=== PATIENT | female | born 1965 | race Caucasian/White ===

== ENCOUNTER → 2023-05-20 07:43 | Outpatient (REF) | payer OTHER, SELFPAY | LOC: HWWDC 07:43 | PROVIDERS: ATTENDING PHYSICIAN Obstetrics & Gynecology; FAMILY PHYSICIAN Internal Medicine | DX: Z12.31 Encounter for screening mammogram for malignant neoplasm of breast (principal) | CPT/HCPCS: 77063; 77067 ==

== ENCOUNTER 2023-07-14 07:52 | Emergency (ER) | payer OTHER, SELFPAY ==
[2023-07-14 07:53] VITALS: BP 108/63
[2023-07-14 08:20] LABS: Urine Albumin Negative (Neg - Trace); Urine Bilirubin Negative (Negative); Urine Character Clear (Clear); Urine Color Yellow; Urine Glucose Negative (Negative); Urine Ketone Trace (Negative); Urine Leukocyte Trace (Negative); Urine Nitrite Negative (Negative); Urine Occult Blood Trace (Negative); Urine Specific Gravity 1.005 (<1.030); Urine Urobilinogen Negative (Neg - 1+)
[2023-07-14 08:22] LABS: % Basophils 0.3 % (0-2); % Eosinophils 2.1 % (0-6); % Immature Granulocytes 0.3 % (0-0.5); % Lymphocytes 31.8 % (20.5-51.1); % Monocytes 8.8 % (1.7-9.3); % Neutrophils 56.7 % (42.2-75.2); Absolute Eosinophils 0.1 10^3/uL (0-0.7); Absolute Lymphocytes 1.2 10^3/uL (1.2-3.4); Absolute Monocytes 0.3 10^3/uL (0.1-0.6); Absolute Neutrophils 2.2 10^3/uL (1.4-6.5); Hematocrit 41.5 % (37.0-47.0); Hemoglobin 14.9 g/dL (12.0-16.0); Mean Corp Hgb Conc. 35.9 g/dL (33.0-37.0); Mean Corpuscular Hgb 33.3 pg (27.0-31.0); Mean Corpuscular Volume 92.6 fL (81.0-99.0); Mean Platelet Volume 9.4 fL (7.4-10.4); Nucleated Red Blood Cells % 0 %; Platelet Count 200 10^3/uL (130-400); Red Blood Cell Count 4.48 10^6/uL (4.20-5.40); Red Cell Dist. Width 11.9 % (11.5-14.5); White Blood Cell Count 3.9 10^3/uL (4.8-10.8)
[2023-07-14 08:32] LABS: Urine Bacteria Few (Negative); Urine Red Blood Cell 0-2 /HPF (0-2)
[2023-07-14 08:37] LABS: ALT (SGPT) 36 U/L (0-35); AST (SGOT) 45 U/L (14-36); Albumin 4.7 g/dl (3.5-5.0); Alkaline Phosphatase 85 U/L (38-126); Blood Urea Nitrogen 16 mg/dl (7-17); Calcium 10.3 mg/dl (8.4-10.2); Carbon Dioxide 30 mmol/L (22-30); Chloride 104 mmol/L (98-107); Glucose 89 mg/dl (70-99); Lipase 113 U/L (23-300); Sodium 137 mmol/L (135-145); Total Bilirubin 1.2 mg/dl (0.2-1.3); Total Protein 7.3 g/dl (6.3-8.2); eGFR > 60.00
--- NOTE | 2023-07-14 09:13 | ED.GENMED ---
History of Present Illness
General
Chief Complaint: Abdominal Pain
Source: patient
Exam Limitations: none
Time Seen by Provider: 07/14/23 08:48
Nursing documentation reviewed up to this point in time: agreed with
Travel History
Have you had any contact with someone who has COVID-19?: No
Do you have any symptoms of coronavirus? Fever > 100 degrees, chills, cough, shortness of breath, sore throat, loss of taste or smell, muscle aches, or headache?: No
History of Present Illness
History of Present Illness:
The patient is a 58-year-old female who reports that since this past Tuesday, which was 2 days ago, she has had diffuse abdominal pain, bloating, decreased appetite and nausea. Patient also reports that her bowel movements are much less frequent
than usual. She denies vomiting and fever. She reports the pain seems worse in her epigastric area and her right abdomen. Patient has a history of pelvic surgery in the past. Patient reports she still has her gallbladder and appendix. Patient
reports that she has a history of a low white blood cell count and elevated LFTs.
Past History
Past History
ED Past Medical History: Psychiatric (History of anxiety)
ED Past Surgical History: Gynecological (Tubal ligation, KWAME/BSO July 2016) and Other (Exploratory laparotomy, cystocele and rectocele surgery, bladder sling w/ mesh)
Social History
Tobacco: Non-smoker
Alcohol: Occasional
Drug: None
Personal:
Living: with family
Employment: Employed
Family History
Family History: Other (Noncontributory)
Review of Systems
Review of Systems
Allergies reviewed?: Yes
All Other Systems: ROS reviewed and negative except as documented in HPI and ROS
Constitutional: Reports no symptoms
EENT: Reports no symptoms
Respiratory: Reports no symptoms
Cardiac: Reports no symptoms
ABD/GI: Reports abdominal pain, nausea and anorexia
: Reports no symptoms
Musculoskeletal: Reports no symptoms
Skin: Reports no symptoms
Neurological: Reports no symptoms
Endocrine: Reports no symptoms
Hematologic/Lymphatic: Reports no symptoms
Psychiatric: Reports no symptoms
Phy Exam
Physical Exam
Physical Exam:
Physical Exam
General: no apparent distress, not acutely ill
Neck: supple.
Heart: s1/s2 regular rate and rhythm, no murmur. equal radial pulses.
Lungs: no acute respiratory distress. clear bilaterally
Abdomen: soft, distended, normal BM, diffuse ab pain. No pulsatile mass
Neuro: alert and oriented. no focal neurological deficits
Skin: no rash
Psychiatric: well kept. interactive and cooperative
Extremities: no edema.
Course
Orders/Labs/Results
Orders:
Orders
07/14/23 08:03
Complete Blood Count/With Diff Urgent
Comprehensive Metabolic Panel Urgent
Lipase Urgent
07/14/23 08:05
Urinalysis Reflex To Culture Urgent
Date Specimen was Collected: 07/14/23
Time Specimen was Collected: 07:58
Urine Microscopic Reflex Cult Urgent
07/14/23 09:11
Ondansetron Injectable [Zofran] 4 mg IV NOW STA
07/14/23 09:12
CT Abd/pel W Iv And Oral Contr Urgent
Comment:
Reason For Exam: abdominal bloating, nausea
Iohexol [Omnipaque] See Protocol PO NOW STA
Abnormal Lab Results
07/14/23 07/14/23
08:03 08:05
WBC 3.9 L 10^3/uL
(4.8-10.8)
MCH 33.3 H pg
(27.0-31.0)
Calcium 10.3 H mg/dl
(8.4-10.2)
AST 45 H U/L
(14-36)
ALT 36 H U/L
(0-35)
Urine Ketones Trace A
(Negative)
Ur Occult Blood Reflex Trace A
(Negative)
Leukocyte Esterase Rfl Trace A
(Negative)
Urine Bacteria (Reflex) Few A
(Negative)
07/14/23 08:03
07/14/23 08:03
Vital Signs
Initial and Last Documented VS:
Initial Vital Signs
Temp Pulse Resp BP Pulse Ox
98.7 F 72 18 108/63 99
07/14/23 07:53 07/14/23 07:53 07/14/23 07:53 07/14/23 07:53 07/14/23 07:53
Last Documented Vital Signs
Temp Pulse Resp BP Pulse Ox
98.7 F 91 20 118/71 99
07/14/23 07:53 07/14/23 14:25 07/14/23 14:25 07/14/23 14:25 07/14/23 14:25
MDM/Problems Addressed
Differential Diagnosis Includes:
Small bowel obstruction, acute cholecystitis, acute appendicitis
MDM/Problems Addressed:
Patient presents with acute abdominal pain and bloating for 2 days
Chronic conditions affecting care: Previous abdomnial surgery
*Radiology
Radiology exam reviewed: radiology read reviewed
*Pulse Oximetry
Patient hypoxic: no
*EKG
Interpreted by ED Provider?: NA
*Critical Care Note
Total Time (30-74mins, 75-104mins- exclusive of procedures): Not Applicable
Data Reviewed
Review of Other/Old Records Reveals: Labs (Previous blood work reviewed by me. Patient has a chronically low white blood cell count)
Source: patient and family (Daughter, who is at the bedside)
Patient Management
Discussion with other providers: Other (Discussed patient with Sloan Alamo from gastroenterology who recommended [id number] IBGard)
ED Attending Note
-
Portions of this chart may have been created with voice recognition software.� Occasional wrong word or��sound alike� substitutions may have occurred due to the inherent limitations of voice recognition software.
Discharge Plan
Departure
Patient Disposition: Home (Routine Discharge)
Date of Disposition: 07/14/23
Time of Disposition: 13:51
Patient with high blood pressure during this ER visit?: No
Condition: Good
Covid-19: Not Applicable
Discharge Problem:
Enteritis
Instructions: [place] Diet, Abdominal Pain, Adult ED
Prescriptions:
New
ondansetron 4 mg tablet,disintegrating
4 mg PO TID PRN (Reason: nausea and vomiting) Qty: 14 0RF
No Action
escitalopram oxalate [Lexapro] 10 MG tablet
10 mg PO DAILY
vitamin B complex 1 EACH tablet
1 ea PO DAILY
multivitamin Tablet
1 tab PO DAILY
clonazepam 0.5 mg Tablet
0.5 mg PO HS
Patient Comments:
03/02/23: filled #90 tablets [employer] per PDMP
rosuvastatin 10 mg tablet
10 mg PO DAILY
hydrochlorothiazide 12.5 mg tablet
12.5 mg PO DAILY
estradiol 10 mcg tablet
10 mcg VAGINAL SUTH
simethicone [Gas Relief 80 (simethicone)] 80 MG tablet,chewable
80 mg PO Q6HPRN PRN (Reason: gas discomfort)
Referrals:
Sloan Alamo MD [Active] - (Call in 48 hours if not feeling better)
Pat Alexander MD [Family Provider] -
Activity Restrictions/Additional Instructions:
Use IBgard (which is sold [id number]) as directed until the bloating is much better
Interventions
Interventions:
*Risk Screen - Suicide Last Done: 07/14/23 07:53
*General Assessment Last Done: 07/14/23 07:53
*Neglect/Abuse Screening Last Done: 07/14/23 07:53
*Nursing Disposition Last Done: 07/14/23 14:25
YP-Nnnamq-Xonbzmqmtt Assessment Last Done: 07/14/23 10:00
Discharge Date and Time
Discharge Date/Time: 07/14/23 14:26
Print Language: SLOVAK
[2023-07-14] MEDS: ZOFRAN 4 MG IV (09:29)
[2023-07-14] MEDS: OMNIPAQUE 50 ML PO (09:32)
[2023-07-14 09:33] VITALS: BP 107/75
[2023-07-14 10:00] VITALS: BP 120/76
[2023-07-14 12:00] VITALS: BP 114/76
[2023-07-14 13:15] VITALS: BP 122/74
[2023-07-14 14:25] VITALS: BP 118/71
== END 2023-07-14 14:26 | disposition home or self-care (01) ==
LOC: EMR 07:52
PROVIDERS: Emergency Medicine; EMERGENCY PHYSICIAN Emergency Medicine; FAMILY PHYSICIAN Internal Medicine
DX: K52.9 Noninfective gastroenteritis and colitis, unspecified (principal)
CPT/HCPCS: 99285; 96374; 74177; 80053; 81003; 81015; 83690; 85025; Q9967

== ENCOUNTER → 2023-10-27 12:54 | Outpatient (REF) | payer OTHER, SELFPAY | LOC: HWRAD 12:54 | PROVIDERS: ATTENDING PHYSICIAN Internal Medicine | DX: R10.9 Unspecified abdominal pain (principal); R39.9 Unspecified symptoms and signs involving the genitourinary system | CPT/HCPCS: 76770 ==

== ENCOUNTER → 2024-01-27 06:32 | Day surgery (SDC) | payer OTHER, SELFPAY | LOC: GI 06:32 | PROVIDERS: ATTENDING PHYSICIAN Internal Medicine Gastroenterology | DX: Z12.11 Encounter for screening for malignant neoplasm of colon (principal); D12.3 Benign neoplasm of transverse colon; K63.5 Polyp of colon; K64.0 First degree hemorrhoids | CPT/HCPCS: 45385; 45380; 88305 ==

== ENCOUNTER → 2024-05-16 11:59 | Outpatient (REF) | payer OTHER, SELFPAY | LOC: HWRAD 11:59 | PROVIDERS: ATTENDING PHYSICIAN Internal Medicine | DX: J18.9 Pneumonia, unspecified organism (principal) | CPT/HCPCS: 71046 ==

== ENCOUNTER → 2024-06-12 07:42 | Outpatient (REF) | payer OTHER, SELFPAY | LOC: HWWDC 07:42 | PROVIDERS: ATTENDING PHYSICIAN Internal Medicine | DX: Z12.31 Encounter for screening mammogram for malignant neoplasm of breast (principal) | CPT/HCPCS: 77063; 77067 ==